=== PATIENT | male | born 1960 | race Hispanic/Latino ===

== ENCOUNTER 2017-05-05 16:37 | Emergency (ER) | payer SELFPAY ==
[2017-05-05 16:53] VITALS: BP 129/78; PULSE 100; RESP 24; O2SAT 96
[2017-05-05 20:00] VITALS: BP 107/74; PULSE 79; RESP 20; O2SAT 93
--- NOTE | 2017-05-05 20:04 | ED.REPORT ---
HPI-Fever Date of Service May 05, 2017 ED Provider: Vasiliy Balbuena MD This is a 56-year-old male with no known past medical history who comes in to the ED for fever. Onset was yesterday around noon. Says it is unresponsive to Tylenol. Associated symptoms include headache, and a "lump on his throat" which has since gone away. He does know that he had pneumonia about 6 years prior and it feels similar to that, however she denies any sort of coughing, nasal congestion, sore throat, difficulty with breathing, chest pain. He also denies abdominal pain, diarrhea, nausea and vomiting. He denies any recent sick contacts. He has no recent travel history, came from [place] 20-25 years ago. 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 He denies being around any animals. Nursing Notes Stated Complaint: FLU LIKE SYMPTOMS Chief Complaint: FLU/Cold Symptoms Allergies: Coded Allergies: No Known Allergies (Unverified , 05/05/17) Scheduled Ibuprofen (Ibuprofen) 600 Mg Tablet 600 MG PO QID General Time Seen by MD: 19:13 Chief Complaint Fever currently Past Medical History Past Medical History None Past Surgical History None Smoking History Never Smoker Social History Alcohol Use: Denies alcohol use Drug Use: Denies drug use Review of Systems Constitutional: Reports: Fever, Denies: Weakness - generalized Ears / Nose / Throat: Denies: Earache bilateral, Sore throat Respiratory: Denies: Non-productive cough Cardiovascular: Denies: Chest pain, Dyspnea on exertion GI: Denies: Abdominal pain, Constipation, Diarrhea, Nausea, Vomiting Neurologic: Reports: Headache Complete sys rev & neg: except as marked. Physical Exam Initial Vital Signs Vital Signs (First) Date Time Temp Pulse Resp B/P Pulse Ox O2 Delivery O2 Flow Rate FiO2 05/05/17 16:53 38.7 100 24 129/78 96 Room Air Initial VS: Reviewed Head / Eyes: Atraumatic, Normocephalic, PERRL ENT: Conjunctiva normal, No scleral icterus Abdomen / GI: Soft, Non-tender, No guarding, No rebound, No distention Back: No CVA tenderness Psychiatric: Mood/affect normal, Behavior normal, Normal thought content General/Constitutional: Awake, Alert, No acute distress Neck: Atraumatic, No swelling, Non-tender, No midline vertebral tend Respiratory / Chest: Breath sounds NL, Breath sounds = bilat, No respiratory distress, No rales, No rhonchi, No wheezing Cardiovascular: Regular rhythm, Heart sounds NL, No murmurs Heart Rate / Rhythm: Positive: Tachycardia Skin: No rash Neurologic: Oriented X3, Speech NL Head / Eyes: No scleral icterus ENT: Mucous membranes moist, Pharynx NL, No sinus tenderness Adenopathy: Positive: Submandibular L Re-Eval/Medical Decision Med Decision/Clinical Course This is 56-year-old male with no known past medical history who presents with fever. Associated symptoms include headache and a tender cervical lymph node. This been going on for one day. He has no other associated symptoms to go with this that would point towards any sort of meningitis or pneumonia. Seems to be a viral illness and his fever and headache is responsive to ibuprofen that we gave him here. The patient is stable and in no acute distress, so it is safe for him to go home. Discharge & Departure Impression: Primary Impression: Viral illness Disposition: Home Discharge Condition All VS Reviewed: Yes Condition: Stable Patient Instructions: Fever in Adults (ED) Additional Instructions: You may take Tylenol 650 mg every 6 hours as needed for fevers. You may also use ibuprofen 600 mg every 6 hours as needed for fevers. Referrals: NOPCP (PCP) Attending Statement I personally examined this patient with Dr Hernandez on 05/05. Agree with above. Francisco Hernandez DO May 05, 2017 19:44 Vasiliy Balbuena MD May 05, 2017 23:51
[2017-05-05] MEDS ORDERED: IBUP-1827 PO (20:07)
[2017-05-05 20:21] VITALS: BP 107/74; PULSE 79; RESP 20; O2SAT 93
== END 2017-05-05 20:22 | disposition home or self-care (01) ==
LOC: SED 16:37
DX: B34.8 Other viral infections of unspecified site (principal)